=== PATIENT | female | born 1960 ===

== ENCOUNTER → 2017-04-17 | Outpatient (CLI) | payer OTHER ==
[~2017-04-17] MED LIST: ALBUTEROL SULFATE 0.083% NEB 2.5 MG/3 ML AMPUL NEB ONE
--- NOTE | 2017-04-18 13:24 | PULMONARY FUNCTION TEST ---
DATE OF SERVICE: 04/17/2017 THE VITAL CAPACITY IS SEVERELY DECREASED. THE EXPIRATORY FLOW RATES ARE SEVERELY DECREASED. THE FEV1/VC IS 53%, PREDICTED: 84% AFTER BRONCHODILATOR, EXPIRATORY FLOW RATES SHOW SIGNIFICANT IMPROVEMENT. IMPRESSION: GOOD PATIENT EFFORT. SEVERE OBSTRUCTIVE DEFECT WITH SIGNIFICANT IMPROVEMENT IN EXPIRATORY FLOW RATES AFTER BRONCHODILATOR. CC: SANDRA BRANDT MD > [email or web address]
== END ==
LOC: RT 10:03
DX: J45.909 Unspecified asthma, uncomplicated (principal)
CPT/HCPCS: 94060